=== PATIENT | female | born 1960 | race Asian ===

== ENCOUNTER 2020-05-28 06:27 | Inpatient (IN) | payer SELFPAY ==
[~2020-05-28] VITALS: Ht 162.6 cm; Wt 74.4 kg
[2020-05-28 06:37] VITALS: Ht 162.6 cm; Wt 74.4 kg
--- NOTE | 2020-05-28 06:57 | NUR ---
PT PRESENTED TO ED WITH RLQ PAIN "SINCE 3 AM". PT AWAKE, A/O X4 AND VERBALLY RESPONSIVE. NO ACUTE DISTRESS NOTED. PT DENIES ANY N/V, DIARRHEA OR CONSTIPTATION. PLACED ON CM AND O2 MONITOR. IV ESTABLISHED TO LEFT AC 20G, FLUSHED WITH 10CC NS AND NO COMPLICATIONS. MD LOZANO AT BEDSIDE PERFORMING MSE. SAFETY MEASURES IN PLACE. CALL LIGHT WITHIN REACH. WILL CONTINUE TO MONITOR.
--- NOTE | 2020-05-28 07:12 | NUR ---
ENDORSEMENT GIVEN TO GLORY HARRIS, WILL ASSUME CARE.
--- NOTE | 2020-05-28 07:15 | NUR ---
ASSUMING CARE OF PT AT THIS TIME. PT IS AOX4, AND PREVIOUS RN MEDICATED PT AT THIS TIME. CT IN THE ROOM AT THIS TIME AND PREPARING TO TRANSPORT PT TO CT. INTRODUCED SELF TO PT AND UPDATED PT ON PLAN OF CARE. PT PROVIDED COMFORT MEASURES.
[2020-05-28 07:37] LABS: CALCIUM 9.1 mg/dL (8.5-10.1); CARBON DIOXIDE 28.2 mmol/L (21-32); CREATININE SERUM 1.1 mg/dL (0.6-1.0); POTASSIUM SERUM 3.9 mmol/L (3.5-5.1)
[2020-05-28 07:38] LABS: BASOPHIL % 0.2 % (0-2); PLATELET COUNT 361 x10^3mcL (130-400)
[2020-05-28 07:41] LABS: ALBUMIN 3.6 g/dL (3.4-5.0); BILIRUBIN TOTAL 0.65 mg/dL (0.20-1.00)
[2020-05-28 07:44] LABS: RED CELL DISTRIBUTION WIDTH 15.9 % (11.5-14.5)
[2020-05-28 10:46] LABS: UA SPECIFIC GRAVITY 1.025 (1.005-1.035); microscopic required? YES; urine erythrocyte 2+ (NEGATIVE)
--- NOTE | 2020-05-28 12:00 | NUR ---
RECIVED PATIENT FROM ER NURSE, ALERT AND ORIENTED X 4, C/O 6/10 UPPER ABDOMINAL PAIN, LUNG SOUNDS CLEAR ON RA, ABLE TO AMBULATE INDEPENDENTLY, IV IN LAC PATENT, DENIES CHEST PAIN, BOWEL SOUNDS ACTIVE, LAST BM THIS AM, SKIN INTACT, NO EDEMA NOTED, PEDAL PULSES STRONG AND EQUAL BILATERALLY, CONTINENT OF BOWEL AND BLADDER, PATIENT CALM AND COOPERATIVE
[2020-05-28 12:41] VITALS: BP 150/58
[2020-05-28 16:26] VITALS: BP 105/44
[2020-05-28 17:18] VITALS: BP 140/74
--- NOTE | 2020-05-28 18:16 | NUR ---
PATIENT STILL C/O 6/10 PAIN POST ADMINISTRATION OF IV MORPHINE, ORDER OBTAINED FROM TRANSMISSION AND PROTECTION ENGINEER FOR PRN DILAUDID
--- NOTE | 2020-05-28 18:53 | NUR ---
PATIENT RESTING COMFORTABLY IN BED, NO DISTRESS NOTED AT THIS TIME, WILL ENDORSE CARE TO PM NURSE
--- NOTE | 2020-05-28 19:24 | NUR ---
PATIENT C/O PAIN, TEMP OF 104, CHILLS, SOB, ADMINISTERED 02 2LPM VIA LA, NOTIFIED SCREW MACHINE ADJUSTER AUTOMATIC RESIDENT DR. CUENCA, WILL COME AND ASSESS PATIENT
[2020-05-28 21:08] VITALS: BP 102/51
--- NOTE | 2020-05-28 22:53 | NUR ---
AT 1920 RECEIVED REPORT TO OUTGOING NURSE.PATIENT IN BED ,AWAKE,ALERT AND ORIENED.SKIN WARM AND DRY TO TOUCH.RESPIRATION LABORED BREATHING AND SHORTNESS OF BREATH.CURRENTLY ON OXYGEN AT 2 L/MIN VIA N/C WITH O2 SAT.89-92%. ASSISTED TO BEDSIDE COMMODE DUE TO WEAKNESS AND FILLING DIZZY AND SHAKY.SEEN BY DR. SALINAS THE RESIDENT AND ASSESSMENT DONE. CALL LIGHT WITHIN REACH.
--- NOTE | 2020-05-28 23:06 | NUR ---
SEEN AND EXAMINED BY DR. DELGADILLO IN HOUSE RESIDENT AND AWARE OF PATIENT CURRENT CONDITION. PATIENT DENIES ANY PAIN AND WITH SOME DISCOMFORT,NO SHORTNESS OF BREATH AND CONTINUE TO APPLY COOLING MEASURE.
--- NOTE | 2020-05-28 23:08 | NUR ---
SEEN AND EXAMINED BY ANABEL MONTGOMERY (UROLOGIST ) AND DISCUSSED TO PATIENT PLAN OF CARE AND PROCEDURE IN AM AND PATIENT VERBALIZED UNDERSTANDING. PATIENT RESTING IN BED COMFORTABLY AT THIS TIME.
[2020-05-29 04:00] VITALS: BP 110/60
--- NOTE | 2020-05-29 05:31 | NUR ---
PATIENT RESTING IN BE WITH BOTH EYES CLOSED AT THIS TIME.HAD EPISODES OF NAUSEA AND VOMITING ,MEDS GIVEN ORDERED WITH GOOD RELIEF.KEPT NPO SINCE MIDNIGHT FOR SURGERY THIS AM.PROVIDED COOLING MEASURE AND SAFETY PRECAUTION.
[2020-05-29 05:55] VITALS: BP 120/58
--- NOTE | 2020-05-29 07:10 | NUR ---
PATIENT LEFT FOR PROCEDURE. THE WBCS HAVE REDUCED ON THE LABS AND NO ADVERSE REACTION TO THE ANTIBIOTICS NOTED. PATIENT DENIES PAIN AT THIS TIME AND HAS CHECKLIST AND CONSENT IN PLACE FOR THE PROCEDURE. PATIENT HAS HX OF C SECTIONS ONLY AND HAS BEEN ON 02 AT 2 LITERS VIA NASAL CANNULA . PATIENT HAD ZOFRAN AT 450AM FOR COMPLAINTS OF NAUSEA AND TEMPERATURE THIS AM AT 99.8, 110, 18, %. PATIENT LABS NOTE THE POTASSIUM AT 3.2, BUN AT 31.0, AND THE CREATININE AT 1.9. SHE HAS WBCS MINIMAL CHANGEAT 11.4 AND SODIUM AT 133. SHE HAS CONTINUED IV FLUIDS AT 100CC PER HOUR.
--- NOTE | 2020-05-29 07:14 | NUR ---
PT RECEIVED FROM CREW BOSS RN. PT IS SLEEPING THIS TIME, AROUSABLE TO VERBAL STIMULI. NO SIGNS OF SOB OR PAIN. PT IS ON 2L NC, O2 SAT 94%. REPORT GIVEN TO OR NURSE BY CREW BOSS RN. CURRENTLY BEING TRANSPORTED TO OR FOR CYSTOSCOPY ON 0700. WILL ASSESS AND MONITOR WHEN PT ARRIVES.
[2020-05-29 07:17] LABS: BASOPHIL % 0.1 % (0-2); PLATELET COUNT 182 x10^3mcL (130-400)
[2020-05-29 07:44] LABS: CALCIUM 7.9 mg/dL (8.5-10.1); CARBON DIOXIDE 19.2 mmol/L (21-32); CREATININE SERUM 1.9 mg/dL (0.6-1.0); POTASSIUM SERUM 3.2 mmol/L (3.5-5.1)
--- NOTE | 2020-05-29 09:40 | NUR ---
PATIENT STATED SHE NEEDED TO VOID. PATIENT PLACED ON BEDPAN AND VOIDED APPROXIMATELY 500 ML OF YELLOW COLORED URINE.
--- NOTE | 2020-05-29 09:58 | NUR ---
VISHNU HANDSTITCHING MACHINE COLLAR FELLER AT BEDSIDE TO ASSESS PATIENT. POC DISCUSSED WITH QUESTIONS AND CONCERNS ADDRESSED. PATIENT REMAINS STABLE WITH SYSTOLIC BP IN 90'S AND MAP IN 70'S. PATIENT CAN TRANSFER BACK TO TELE THIS AFTERNOON IF BP REMAINS STABLE.
--- NOTE | 2020-05-29 10:00 | NUR ---
PT TRANSFERED FROM PACU TO ICU BED 6 @ 0930, WAS ACCOMPANIED BY ANESTHESIOLOGIST AND RN MARK TRANSFERRED FROM BED TO BED VIA DRAW SHEET SLIDING. PT AAOX4, PT FOLLOWS COMMANDS, ON 2LPM NASAL CANULA, LUNG SOUNDS CTA BILATERALLY, EENT FREE OF DISCHARGED, PT HAS TUNNING HD CATHETER ON REJ, INTACT AND DRESSING CDI. PT BREATHING E/U. PULSES ARE MODERATE TO X4Q. NO EDMA NOTED X4Q, CAP REFILL <3S, SKIN DRY AND INTACT. PIV TO RT HAND PATENT, INTACT, DRESSING CDI.PT HAS GENERALIZED WEAKNESS, JOINT INTACT, ON REGULAR DIET, PO, PT HAD ONE EPISODE OF 500 ML URINE OUTPUT IN THE MORNING. PT COOPERATIVE, FULL ASSESSMENT TO BE COMPLETED. GOT PT'S BELONGINGS ALL LISTS MET. WILL CONTINUE TO MONITOR.
--- NOTE | 2020-05-29 10:16 | NUR ---
TERRENCE RN GAVE REPORT TO THE STAFF IN ICU . PATIENT SPOUSE REFERED TO ICU FOR REPORT. PATIENT SENT TO ICU POST THE PROCEDURE DUE TO LOW BP. TOOK ALL BELONGINGS TO THE ICU AND PRESENTED TO THE PATIENT. PATIENT IS AWAKE AND ALERT AT THIS TIME.
[2020-05-29 12:30] VITALS: BP 101/63
--- NOTE | 2020-05-29 14:54 | NUR ---
GIVEN TRANSFER REPORT TO KIMBERLY OWENS, PT IS STABLE, AAOX4, AND ALL VS WNL. DENIES ANY PAIN AT THIS TIME. ALL HER BELONGINGS LIST MET. SHE WILL TRANSFER TO ROOM 253B. REGARDING TO PT'S TRANSFER WILL TAKE CARE WITH SPRING,CHARGE NURSE KIMBERLY. KIMBERLY LONDONO MADE AWARE.
--- NOTE | 2020-05-29 15:15 | NUR ---
RECEIVED REPORT FROM AFTERSCHOOL BABYSITTERBLANCA LONDONO. PT RESTING COMFORTABLY. DISCONTINUED 2L N/C. PT USED BEDPAN 225ML OUTPUT. PT TO BE TRANSFERRED TO MED/SURG WHEN BED IS AVAILABLE.
--- NOTE | 2020-05-29 18:42 | NUR ---
PT BELONINGS AND MEDICATIONS TRANSFERED WITH PT, UPDATES GIVEN TO KIMBERLY OWENS, PT TRANSFERING VIA WHEELCHAIR TO ROOM 253
--- NOTE | 2020-05-29 19:45 | NUR ---
PATIENT IS STABLE, NO ACUTE DISTRESS NOTED. AAOX4, CALM AND COOPERATIVE. DENIES PAIN, SOB, N/V AT THIS TIME. ON ROOM AIR, BREATHING IS EVEN AND UNLABORED. S/P CYSTOSCOP WITH RIGHT UTERAL STENT PLACEMENT. PATIENT IS STABLE. PLAN OF CARE REVIEWED, VERBALIZED UNDERSTANDING. INSTRUCTED TO CALL WHEN IN NEED OF HELP. SAFETY MAINTAINED. BED IS AT THE LOWEST POSITION, CALL LIGHT IS WITHIN REACH. WILL CONTINUE TO MONITOR.
[2020-05-29 20:19] VITALS: BP 134/76
[2020-05-30 05:26] VITALS: BP 116/74
--- NOTE | 2020-05-30 06:55 | NUR ---
PATIENT IS STABLE, NO ACUTE DISTRESS NOTED. DENIES PAIN, SOB, N/V AT THIS TIME. ALL NEEDS MET. SAFETY MAINTAINED. BED IS AT THE LOWEST POSITION, CALL LIGHT IS WITHIN REACH. REPORT TO BE GIVEN TO ONCOMING MORNING NURSE TO FOLLOW UP CARE.
--- NOTE | 2020-05-30 07:20 | NUR ---
PT REPORT RECEIVED FROM ENGINE BUILDER RN. PT IS SLEEPING, AROUSABLE TO VERBAL STIMULI. PT STATES SHE IS FEELING MUCH BETTER. DENIES PAIN AND SOB. COMPLAINS OF SLIGHT HEADACHE BUT WILL LET ME KNOW WHEN SHE WANTS TO TAKE HER PRN TYLENOL. ON ROOM AIR, O2 SAT 99%. SAFETY PRECAUTIONS IN PLACE. WILL CONTINUE TO MONITOR.
[2020-05-30 07:47] LABS: CALCIUM 8.3 mg/dL (8.5-10.1); CARBON DIOXIDE 24.6 mmol/L (21-32); CREATININE SERUM 1.7 mg/dL (0.6-1.0); POTASSIUM SERUM 4.2 mmol/L (3.5-5.1)
[2020-05-30 08:04] LABS: BASOPHIL % 0.1 % (0-2); PLATELET COUNT 147 x10^3mcL (130-400)
--- NOTE | 2020-05-30 08:05 | NUR ---
LAB CALLED AND INFORMED ME OF JAYDE'S WBC 35.6. INFORMED FORCE VARIATION EQUIPMENT TENDER RONALD VERBALLY IN PERSON, SHE WILL INFORM . CURRENTLY ASYMPTOMATIC. WILL CONTINUE TO MONITOR.
[2020-05-30 08:06] LABS: RED CELL DISTRIBUTION WIDTH 16.5 % (11.5-14.5)
--- NOTE | 2020-05-30 08:17 | NUR ---
RECEIVED PATIENT SLEEPING QUIETLY AT THIS TIME. SHE KENDALL SNOT APPEAR IN ANY PAIN OR DISTRESS BUT NTOED THE WBC DID ELEVATE. TERRENCE HARRIS ADVISED THE ELECTRONIC DIE MAKER AND SHE IN TURN WILL NOTIFY DR PINTO FOR ORDERS. PATIENT HAS NO FEVER REPORTED OVER NIGHT AND HAS BEEN AMBULATORY AND BP HAS BEEN WNL. SHE HAS TOLERATE DDIET AND FLUIDS. PATIENT IS STATUS POST STENT PLACEMENT YESTERDAY AND A TRIP TO ICU DUE TO LOW BP AND NOW BACK ON THE FLOOR REPORTED STABLE. LUNGS ARE CLEAR AND BOWEL SOUNDS ACTIVE. SHE HAS PULSES PALPABLE TO ALL EXTREMITES. CONTINUED ON MERRIN AND NO ADVERSE REACTION. VITALS AT THIS TIME AT 97.3, 78, 19, 127/61, 83, 97Z%.
[2020-05-30 08:24] VITALS: BP 130/76
--- NOTE | 2020-05-30 10:00 | NUR ---
PT IS AWAKE, WATCHING MOVIES ON HER PHONE. HEADACHE IS STILL WITHIN A TOLERABLE LEVEL, WILL LET ME KNOW IF SHE WANTS TYLENOL FOR HEADACHE. DENIES PAIN AND TROUBLE BREATHING. SAFETY PRECAUTIONS IN PLACE. WILL CONTINUE TO MONITOR.
--- NOTE | 2020-05-30 10:03 | NUR ---
PATIENT STITTING UP IN BED AND DOES NOT APPEAR IN ANY PIAN AT THIST VICTOR MANUEL ASKED AND DRH STATES SHE IS FEELIGN BETTER. SHE IS AWARE OF THE INFECTION AND THE WHITE CELL COUNT IS GOING UP. SHE IS RESIGNED TO STAYINF FOR NOW. NO INDICATION OF DISTRESS AT THIS TIME. NO FEVER NOTED.
--- NOTE | 2020-05-30 12:00 | NUR ---
PT IS AWAKE, RELAXED. DENIES PAIN AND TROUBLE BREATHING. REFUSES TYLENOL FOR HEADACHE THIS TIME. SAFETY PRECAUTIOSN IN PLACE. WILL CONTINUE TO MONITOR.
[2020-05-30 12:33] VITALS: BP 138/84
--- NOTE | 2020-05-30 12:37 | NUR ---
PATIENT RESTING QUIETLY AND NO COMPLAINTS OF PAIN AT THIS TIME. NO FEVER NOTED AND PATIENT TOLERTED DIET AND FLUIDS
--- NOTE | 2020-05-30 14:32 | NUR ---
PT RESTING, STABLE. DENIES ANY PAIN AND SOB. SAFETY PRECAUTIONS IN PLACE. WILL CONTINUE TO MONITOR.
--- NOTE | 2020-05-30 16:00 | NUR ---
PT IS PLAYING GAMES ON HER PHONE. NO COMPLAINTS OF PAIN OR SOB. SAFETY PRECAUTIONS IN [place]. WILL CONTINUE TO MONITOR.
--- NOTE | 2020-05-30 17:01 | NUR ---
NEW ORDER RIMMA RECIEVED. WILL MONITOR FOR TOLERAMCE.
[2020-05-30 17:07] VITALS: BP 143/86
--- NOTE | 2020-05-30 18:00 | NUR ---
PT IS RELAXED, PLAYING WITH PHONE. DENIES ANY PAIN AND SOB. UNDERSTANDS CURRENT PLAN OF CARE. DENIES HEADACHE AT THIS TIME. SAFETY PRECAUTIONS IN PLACE. WILL ENDORSE CARE TO ANESTHESIA ASSISTANT RN.
--- NOTE | 2020-05-30 19:50 | NUR ---
PATIENT RECEIVED IN BED, NO ACUTE DISTRESS NOTED. AAOX4, CALM AMD COOPERATIVE. DENIES PAIN, SOB, N/V. PLAN OF CARE REVIEWED, VERBALIZED UNDERSTANDING. INFORMED TO CALL WHEN IN NEED OF HELP. ON ROOM AIR, BREATHING IS EVEN AND UNLABORED. SAFETY MAINTAINED. BED IS AT THE LOWEST POSITION, CALL LIGHT IS WITHIN REACH. WILL CONITNUE TO MONITOR.
--- NOTE | 2020-05-30 21:58 | NUR ---
PATIENT BP IS 174/88. PAGE PLACED TO DR. CUENCA FOR PRN ORDERS.
[2020-05-30 22:00] VITALS: BP 174/88
[2020-05-31 05:20] VITALS: BP 164/86
--- NOTE | 2020-05-31 06:31 | NUR ---
PATIENT IS STABLE, NO ACUTE DISTRESS NOTED. DENIES PAIN, SOB, N/V AT THIS TIME. ALL NEEDS MET. SAFETY MAINTAINED. BED IS AT THE LOWEST POSITION, CALL LIGHT IS WITHIN REACH. REPORT TO BE ENDORSED TO ONCOMING MORNING NURSE TO FOLLOW UP CARE.
[2020-05-31 06:59] LABS: CALCIUM 8.5 mg/dL (8.5-10.1); CARBON DIOXIDE 23.1 mmol/L (21-32); CREATININE SERUM 1.1 mg/dL (0.6-1.0); POTASSIUM SERUM 3.9 mmol/L (3.5-5.1)
[2020-05-31 07:17] LABS: PLATELET COUNT 175 x10^3mcL (130-400)
[2020-05-31 07:39] LABS: RED CELL DISTRIBUTION WIDTH 16.4 % (11.5-14.5)
[2020-05-31 07:59] VITALS: BP 188/111
[2020-05-31 11:39] LABS: BAND NEUTROPHIL 2 % (0-10); MONOCYTE 3 % (0-7); SEGMENTED NEUTROPHILS 87 % (37-75); rbc morphology (normal/abnorm) NORMAL (NORMAL)
[2020-05-31 12:06] VITALS: BP 170/93
[2020-05-31 16:42] VITALS: BP 166/101
--- NOTE | 2020-05-31 16:47 | NUR ---
Discount pharmacy card and list to low cost medical clinics given to patient.
--- NOTE | 2020-05-31 17:37 | NUR ---
DAY SHIFT Patient received awake and alert x4, able to make needs known. Able to ambulate well with no assistance. Aware of her own limits. Patient arrived to the ER with severe abdminal pain and was admitted for kidney stones. Cystoscopy was done and a sample of the kidney's urine was taken and grew E. Coli. Patient at 0929 was administered Hydralazine 10mg PO x1 for a BP of 167/98. When BP was reassessed it was 185/9 at 1012. ALEC Gannon was paged x2. She shortly rounded to the unit. I let her know about patients BP and the scheduled of PRN hydralazine. I also informed her that per shift nurse manager, she had multiple HTN episodes. She then added Losartan and Amlodipine scheduled (emar) and PRN clonidine 0.1 PO. I administerd clonidine and now BP is trending down Patient is resting comfortably in chair. Continent of GI &. Able to ambulate to bathroom. Voiding frequently. Some muscle weakness noted but still ambulates well and is very aware of her own limits. Skin is intact. No complaints of pain. Received patient with a peripheral right AC IV running NS @ 100cc/hr. WBC decreased to 29.5 today. Will continue to monitor.
--- NOTE | 2020-05-31 20:00 | NUR ---
RECEIVED PT IN BED AWAKE SITTING UP IN BED, ALERT, ORIENTED X4, SPEECH CLEAR. ABLE TO MAKE NEEDS KNOWN. TELE 16 SHOWS NSR WITH HR AT 75. DENIES CHEST PAIN OR PRESSURE. LUNG SOUNDS CLEAR. BREATHING EASILY ON ROOM AIR. NO RESPIRATORY DISTRESS NOTED. BS ACTIVE IN ALL FOUR QUADS. NO ABD PAIN NOTED. PT VOIDING FREELY. GENERALIZED WEAKNESS NOTED, FULL ROM, AMBULATES WITH MINIMAL ASSISTANCE. SKIN CDI. NO EDEMA NOTED. NS INFUSING AT 100ML/HR TO RAC. SITE IS PATENT. SHIFT ASSESSMENT COMPLETED. CALL LIGHT WITHIN REACH. BED IS IN LOWEST POSITION. WILL CONTINUE TO MONITOR CLOSELY.
[2020-05-31 22:10] VITALS: BP 169/93
[2020-06-01] VITALS (7 sets, daily range): BP systolic 155–183; BP diastolic 72–99
[2020-06-01 07:02] LABS: PLATELET COUNT 196 x10^3mcL (130-400)
[2020-06-01 07:07] LABS: RED CELL DISTRIBUTION WIDTH 16.6 % (11.5-14.5)
--- NOTE | 2020-06-01 07:10 | NUR ---
PT SLEPT ON AND OFF THROUGH OUT THE NIGHT. NO DISTRESS NOTED. WBC TRENDING DOWN THIS AM. WILL ENDORSE TO INCOMING SHIFT.
[2020-06-01 07:40] LABS: CALCIUM 8.7 mg/dL (8.5-10.1); CARBON DIOXIDE 25.7 mmol/L (21-32); CHLORIDE SERUM 104 mmol/L (98-107); CREATININE SERUM 0.9 mg/dL (0.6-1.0); GFR1 > 60 mL/min; GLUCOSE SERUM 75 mg/dL (74-106); POTASSIUM SERUM 3.6 mmol/L (3.5-5.1); SODIUM SERUM 138 mmol/L (136-145)
[2020-06-01 09:26] LABS: BAND NEUTROPHIL 2 % (0-10); MONOCYTE 6 % (0-7); SEGMENTED NEUTROPHILS 79 % (37-75); rbc morphology (normal/abnorm) NORMAL (NORMAL)
--- NOTE | 2020-06-01 11:34 | NUR ---
DAY SHIFT Patient received awake and alert, able to make needs known. Resting comfortably in bed. On a regular diet, tolerating well. Admitted for abdominal pain was found to have infected kidney stones. On tele #[id number], currently normal sinus rhythm. Morning SBP prior to administering Losartan and Amlodipine was in the 180's. Administered scheduled medications rechecked BP and it was 159/82. Monitoring closely in case patient needs PRN medications for SBP > 160. Per patient she also "doesn't want to take them all at the same time. Able to control both bladder and bowel. Voids frequently and urine is clear. Patient ambulates by herself to bathroom but verbalizes she is aware of her own limits. Some muscle weakness noted but gait is steady and verbalized she will call for help when she feels "shaky." Skin is intact - turns herself frequently. No complaints of pain. Received with a right AC peripheral IV and a right jugular hep lock. Right AC is running 0.9% normal saline at 100cc/hr. WBC is now 20.4 per night manager.
--- NOTE | 2020-06-01 19:10 | NUR ---
RECEIVED PATIENT FROM DAY SHIFT NURSE. PATIENT IN NO ACUTE DISTRESS. LAYING IN BED. NO C/O ABD PAIN AT THIS TIME. TELE #[address], HR 81. DENIES CHEST PAIN OR CHEST PRESSURE. EVEN AND UNLABORED BREATHING, ON ROOM AIR. DENIES ANY SOB. IV WNL, NS @100 ML/HR. BED IN LOWEST POSITION. CALL LIGHT WITHIN REACH. SIDE RAILS UP X2.
--- NOTE | 2020-06-02 02:16 | NUR ---
PT C/O MASON, GIVEN TYLENOL PER OCT.
[2020-06-02 05:00] VITALS: BP 171/87
--- NOTE | 2020-06-02 05:19 | NUR ---
PT BP 171/87, HR 86. HYDRALAZINE PO GIVEN PER MAR FOR SBP > 160.
--- NOTE | 2020-06-02 06:07 | NUR ---
BP 160/85 AFTER HYDRALAZINE PO.
[2020-06-02 06:16] VITALS: BP 160/85
--- NOTE | 2020-06-02 06:29 | NUR ---
NO C/O ABD AT THIS TIME. PATIENT AWAKE ON HER PHONE. NO ACUTE DISTRESS. EU BREATHING NOTED ON ROOM AIR. NO C/O MASON AT THIS TIME. TOLERATED MEDICATIONS WELL. IV WNL, FLUIDS INFUSING WELL. NS @ 100 ML/HR.
[2020-06-02 07:29] LABS: CALCIUM 8.8 mg/dL (8.5-10.1); CARBON DIOXIDE 23.8 mmol/L (21-32); CHLORIDE SERUM 101 mmol/L (98-107); CREATININE SERUM 0.8 mg/dL (0.6-1.0); GFR1 > 60 mL/min; GLUCOSE SERUM 84 mg/dL (74-106); SODIUM SERUM 134 mmol/L (136-145)
[2020-06-02 07:36] LABS: PLATELET COUNT 231 x10^3mcL (130-400); RED CELL DISTRIBUTION WIDTH 16.1 % (11.5-14.5)
[2020-06-02 08:00] VITALS: BP 187/100
[2020-06-02 08:13] VITALS: BP 173/87
[2020-06-02] MEDS ORDERED: CAT0.1 PO (09:58)
[2020-06-02] MEDS ORDERED: NOR10 PO (09:58)
[2020-06-02] MEDS ORDERED: COZ25 PO (09:59)
[2020-06-02] MEDS ORDERED: CIPRO500 MG PO (09:59)
[2020-06-02] MEDS ORDERED: BLOOD PRESSURE1 EAC2 MC (10:00)
[2020-06-02 10:55] VITALS: BP 136/88
[2020-06-02 11:49] LABS: BAND NEUTROPHIL 2 % (0-10); MONOCYTE 9 % (0-7); SEGMENTED NEUTROPHILS 61 % (37-75); rbc morphology (normal/abnorm) NORMAL (NORMAL)
[2020-06-02 11:52] VITALS: BP 136/88
--- NOTE | 2020-06-02 15:57 | NUR ---
DISCHARGE INSTRUCTIONS PROVIDED. VERBALIZED UNDERSTANDING. FINISHING UP K RIDER THEN PATIENT CAN GO.
--- NOTE | 2020-06-02 16:44 | NUR ---
PATIENT WHEELED DOWN TO LOBBY, WAITING AT FRONT OF HOSP.
== END 2020-06-02 16:44 | disposition home or self-care (01) | DRG 853 ==
LOC: ED 06:27 → MU 08:51 → DU 08:51 → MU 11:45 → DU 21:13 → IC 05-29 09:32 → DU 05-29 19:06
PROVIDERS: Specialist; Student in an Organized Health Care Education/Training Program; Urology; ADMIT Family Medicine; ATTEND Family Medicine
PROC: 0T768DZ Dilation of Right Ureter with Intraluminal Device, Via Natural or Artificial Opening Endoscopic (ICD-10-PCS; principal; 2020-05-29 07:30)
DX: A41.50 Gram-negative sepsis, unspecified (principal); N17.0 Acute kidney failure with tubular necrosis; N13.6 Pyonephrosis; D72.829 Elevated white blood cell count, unspecified; E86.0 Dehydration; K80.20 Calculus of gallbladder without cholecystitis without obstruction; Z20.828 Contact with and (suspected) exposure to other viral communicable diseases; Z79.899 Other long term (current) drug therapy; Z79.891 Long term (current) use of opiate analgesic; Z88.8 Allergy status to other drugs, medicaments and biological substances; Z98.891 History of uterine scar from previous surgery; B96.20 Unspecified Escherichia coli [E. coli] as the cause of diseases classified elsewhere
CPT/HCPCS: C9113; G0378; J0330; J0696; J1956; J2001; J2185; J2270; J2405; J2543; J2704; J3010; J3480; J3490; J7030; J7120; Q0092; Q9958; Q9967